=== PATIENT | male | born 1965 | race African-American/Black ===

== ENCOUNTER 2017-04-06 20:39 | Emergency (ER) | payer OTHER ==
[~2017-04-06 20:39] MED LIST: CYCL-36 PO; DICL50 PO; NORV5TAB PO
[2017-04-06 20:41] VITALS: BP 161/95; PULSE 76; RESP 18; TEMP 98.4; O2SAT 97
--- NOTE | 2017-04-06 21:13 | PD ---
Physical Exam Time Seen by Provider: 21:08 Narrative 51yo M requesting prescription refill on Flomax. Hasn't taken it for two years. Last night started having difficulty urinating with urinary hesitancy. Denies dysuria, penile discharge. Denies abd pain, fever. Patient seen in triage. VS reviewed. Awaiting bed placement. Data Data Last Documented VS Vital Signs Date Time Temp Pulse Resp B/P Pulse Ox O2 Delivery O2 Flow Rate FiO2 04/06/17 21:11 16 04/06/17 20:41 98.4 76 161/95 97 Room Air Orders Gc And Chlamydia Pcr (04/06/17 21:13) Urinalysis - C+S If Indicated (04/06/17 21:13) MDM Supervised Visit with YOMAIRA: No Scripts No Active Prescriptions or Reported Meds Michelle Dowell Apr 06, 2017 21:13
[2017-04-06 21:35] LABS: BLOOD, URINE NEG (NEG); COMMENT (UR) CULT NOT INDICATED; CULTURE IF INDICATED CULT NOT INDICATED; GLUCOSE,URINE NEG (NEG); KETONE, URINE NEG (NEG); MUCUS URINE FEW /lpf (OCC); NITRITE,URINE NEG (NEG); PH, URINE 6.5 (5.0-8.5); URINE COLOR YELLOW (YELLW/STRAW)
--- NOTE | 2017-04-06 22:56 | PD ---
HPI Chief Complaint: Medication Refill Request Time Seen by Provider: 22:43 Travel History International Travel<30 days: No Contact w/Intl Traveler<30days: No Traveled to known affect area: No History of Present Illness HPI 51yo M with no significant PMH presents to the ED requesting a prescription for flomax. States he has prostate problem and was given flomax in 2015 and it really helped. He is having intermittent difficulty starting urinating and feels that after he urinates, he wants to urinate again. Denies any fever, chest pain, sob, n/v, abdominal pain, testicular pain, penile discharge, penile rash, dysuria, or hematuria. PFSH Past Medical History Depression: Yes Diminished Hearing: No Endocrine: No Hypertension: Yes Tetanus Vaccination: > 5 Years Influenza Vaccination: No Past Surgical History Eye Surgery: Yes (LEFT EYE LAZY EYE SURGERY) Tonsillectomy: Yes Social History Alcohol Use: Yes (sometimes) Tobacco Use: Yes (cigar) Substance Use: Yes (MARIJUANA, cocaine. Patient states weaning himself off.) Allergies-Medications (Allergen,Severity, Reaction): Coded Allergies: *MDRO Multi-Drug Resistant Organism (Unverified Allergy, Unknown, 04/06/17) MRSA 2008 Morphine (Verified Adverse Reaction, Intermediate, Itching, 04/06/17) Itching noted when pt received morphine IV. Reported Meds & Prescriptions Reported Meds & Active Scripts Active Flomax (Tamsulosin HCl) 0.4 Mg Cap 0.4 Mg PO HS 10 Days Review of Systems Except as stated in HPI: all other systems reviewed are Neg Physical Exam Narrative GENERAL: 51yo M not in distress. SKIN: Focused skin assessment warm/dry. HEAD: Atraumatic. Normocephalic. EYES: Pupils equal and round. No scleral icterus. No injection or drainage. ENT: No nasal bleeding or discharge. Mucous membranes pink and moist. NECK: Trachea midline. No JVD. CARDIOVASCULAR: Regular rate and rhythm. No murmur appreciated. RESPIRATORY: No accessory muscle use. Clear to auscultation. Breath sounds equal bilaterally. GASTROINTESTINAL: Abdomen soft, non-tender, nondistended. No rebound tenderness or guarding. MUSCULOSKELETAL: No obvious deformities. No clubbing. No cyanosis. No edema. NEUROLOGICAL: Awake and alert. No obvious cranial nerve deficits. Motor grossly within normal limits. Normal speech. PSYCHIATRIC: Appropriate mood and affect; insight and judgment normal. Data Data Last Documented VS Vital Signs Date Time Temp Pulse Resp B/P Pulse Ox O2 Delivery O2 Flow Rate FiO2 04/06/17 21:11 16 04/06/17 20:41 98.4 76 161/95 97 Room Air Orders Gc And Chlamydia Pcr (04/06/17 21:13) Urinalysis - C+S If Indicated (04/06/17 21:13) Labs Laboratory Tests Test 04/06/17 21:15 Urine Color YELLOW Urine Turbidity CLEAR Urine pH 6.5 Urine Specific [place] 1.019 Urine Protein 30 mg/dL Urine Glucose (UA) NEG mg/dL Urine Ketones NEG mg/dL Urine Occult Blood NEG Urine Nitrite NEG Urine Bilirubin NEG Urine Urobilinogen LESS THAN 2.0 MG/DL Urine Leukocyte Esterase NEG Urine RBC 3 /hpf Urine WBC LESS THAN 1 /hpf Urine Mucus FEW /lpf Microscopic Urinalysis Comment CULT NOT INDICATED Chlamydia trachomatis DNA NOT DETECTED (PCR) Neisseria gonorrhoeae DNA NOT DETECTED (PCR) MDM Medical Decision Making Medical Screen Exam Complete: Yes Emergency Medical Condition: Yes Differential Diagnosis UTI vs. BPH Narrative Course 51yo M with c/o difficulty starting urinating intermittently here requesting prescription for flomax. States he has prostates problem. UA showed no leukocyte or nitrite. Pt is requesting food since he lives in his van. Denies any fever, vomiting or abdominal pain. VS stable. Will give food and have pt follow up with urology. Pt is able to urinate. Abdomen is soft, NT/ND. Return precautions given. Diagnosis Primary Impression: Urinary frequency Referrals: Edgardo Haynes MD call for appointment Patient Instructions: General Instructions Departure Forms: Tests/Procedures Additional Instructions: Please follow up with urology or primary care physician as an outpatient to check your prostate. Return to the ED if symptoms worsen. Med/Other Pt SpecificInfo: Prescription(s) given Scripts Tamsulosin (Flomax)0.4 Mg Cap0.4 Mg PO HS 10 Days Ref 0 Prov:Maria A Frey 04/06/17 Disposition: 01 DISCHARGE HOME Condition: Stable FreyMaria A DO Apr 06, 2017 22:56
[2017-04-06] MEDS ORDERED: TAMS5CAP PO (23:58)
[2017-04-07 00:08] LABS: CHLAMYDIA PCR NOT DETECTED (NOT DETECT); NEISSERIA PCR NOT DETECTED (NOT DETECT)
== END 2017-04-07 02:17 | disposition home or self-care (01) ==
LOC: NEPD 20:39
DX: R35.0 Frequency of micturition (principal); F32.9 Major depressive disorder, single episode, unspecified; I10 Essential (primary) hypertension; F17.290 Nicotine dependence, other tobacco product, uncomplicated; Z79.899 Other long term (current) drug therapy; Z88.5 Allergy status to narcotic agent
CPT/HCPCS: 81001; 87491; 87591; 99283

== ENCOUNTER 2017-05-13 21:25 | Emergency (ER) | payer SELFPAY ==
[~2017-05-13] VITALS: Ht 182.9 cm; Wt 80.0 kg
[~2017-05-13 21:25] MED LIST changes: -CYCL-36 PO; -DICL50 PO; -NORV5TAB PO; +TAMS5CAP PO
[2017-05-13 21:31] VITALS: BP 163/97; PULSE 86; RESP 16; TEMP 98.5; O2SAT 98
--- NOTE | 2017-05-13 21:44 | PD ---
HPI Chief Complaint: Fall Time Seen by Provider: 21:40 Travel History International Travel<30 days: No Contact w/Intl Traveler<30days: No Traveled to known affect area: No History of Present Illness HPI 51-year-old male presents to the emergency department via EMS for evaluation after a slip and fall. He states that he slipped and his work boots, wet surface causing him to fall. He has hematoma with a small lack to left forehead , small act to the right cheek, small lack to the left inner upper lip. He states his tetanus immunization was one to 2 years ago. Patient is unsure if he lost consciousness. He denies any neck pain or back pain. No chest pain or abdominal pain. No nausea or vomiting. Patient's main complaint is right inner hip/upper thigh pain. He reports history of hypertension and BPH. He states he is not taking his hypertension medications. His only medication is Flomax. He denies taking any anticoagulants or having any bleeding disorders. PFSH Past Medical History Depression: Yes Diminished Hearing: No Endocrine: No Hypertension: Yes Tetanus Vaccination: < 5 Years Influenza Vaccination: No Past Surgical History Eye Surgery: Yes (LEFT EYE LAZY EYE SURGERY) Tonsillectomy: Yes Social History Alcohol Use: Yes (sometimes) Tobacco Use: Yes (cigar) Substance Use: Yes (MARIJUANA) Allergies-Medications (Allergen,Severity, Reaction): Coded Allergies: *MDRO Multi-Drug Resistant Organism (Unverified Allergy, Unknown, 05/13/17) MRSA 2008 Morphine (Verified Adverse Reaction, Intermediate, Itching, 05/13/17) Itching noted when pt received morphine IV. Reported Meds & Prescriptions Reported Meds & Active Scripts Active Flomax (Tamsulosin HCl) 0.4 Mg Cap 0.4 Mg PO HS 10 Days Review of Systems Except as stated in HPI: all other systems reviewed are Neg Physical Exam Narrative GENERAL: Well-nourished, well-developed male patient, afebrile. SKIN: Focused skin assessment warm/dry. Patient has large hematoma to the left forehead with 0.5 cm superficial laceration. He also has a 1 similar superficial laceration to the right cheek. Patient also has a 1 cm laceration to the inner upper lip. HEAD: Normocephalic. EYES: No scleral icterus. No injection or drainage. NECK: Supple, trachea midline. No JVD or lymphadenopathy. CARDIOVASCULAR: Regular rate and rhythm without murmurs, gallops, or rubs. Bilateral radial and pedal pulses are 2+. RESPIRATORY: Breath sounds equal bilaterally. No accessory muscle use. Lungs sounds are clear to auscultation. GASTROINTESTINAL: Abdomen soft, non-tender, nondistended. MUSCULOSKELETAL: No cyanosis, or edema. Patient has tenderness over right medial upper thigh. BACK: Nontender without obvious deformity. No CVA tenderness. No midline spinal tenderness. He has full rotation cervical spine without pain or stiffness. Data Data Last Documented VS Vital Signs Date Time Temp Pulse Resp B/P Pulse Ox O2 Delivery O2 Flow Rate FiO2 05/13/17 22:58 16 05/13/17 21:35 97 Room Air 05/13/17 21:31 98.5 86 163/[address] Brain W/O Iv Contrast(Rout) (05/13/17 ) Hip, Uni(Ap&Lat) W Ap Pelvis (05/13/17 ) Femur (Ap & Lat/2vws) (05/13/17 ) Hydromorphone Pf Inj (Dilaudid Pf Inj) (05/13/17 21:45) Ondansetron Inj (Zofran Inj) (05/13/17 21:45) Ct Hip W/O Contrast (05/13/17 ) MDM Medical Decision Making Medical Screen Exam Complete: Yes Emergency Medical Condition: Yes Medical Record Reviewed: Yes Differential Diagnosis Fracture versus contusion versus sprain versus muscle spasm versus intracranial abnormality versus closed head injury laceration versus abrasion Narrative Course 51-year-old male presents to the emergency department via EMS for evaluation after a slip and fall. Patient's main complaint is right hip pain. He did hit his head has possible loss of consciousness. I expressed the patient that I would like to place a suture in his upper lip, but he declined stating he does not want any sutures done. CT of the brain is ordered and pending. X-ray of the right hip with pelvis and right femur are ordered and pending. Patient is given Dilaudid 1 mg IM for pain. CT of the brain shows no acute findings. X-ray of the right hip with pelvis shows equivocal findings suggesting a fracture through the junction of the femoral head and neck on the right side. X-ray of the right femur is pending. Ct of the right hip is ordered and pending. My attending physician, Dr. Rice, will resume care and disposition of patient. Denisse Combs May 13, 2017 21:44
[2017-05-13] MEDS ORDERED: ONDANSETRON HCL 4 MG/2 ML VIAL IM ONE (21:45)
[2017-05-13] MEDS ORDERED: HYDROmorphone HCL PF 1 MG/ML VIAL IM ONE (21:45)
--- NOTE | 2017-05-13 22:41 | RADRPT ---
EXAM DATE/TIME: 05/13/2017 21:57 [facility] COMPARISON: CT ABDOMEN & PELVIS W CONTRAST, February 11, 2014, 20:35. INDICATIONS : Right hip pain post fall today MEDICAL HISTORY : None. SURGICAL HISTORY : None. ENCOUNTER: Initial ACUITY: 1 day PAIN SCORE: 10/10 LOCATION: Right hip FINDINGS: Bony pelvic ring is grossly intact. The patient is rotated towards the right on the pelvic film. Th ere is an asymmetric appearance to the hips. There is a buckling of the junction of the femoral head and neck on the right side seen in both the frontal and oblique view. No definite fracture lucency is seen. There is, however questionable disruption of the secondary trabecula in the femoral neck. The bony acetabulum is intact. No radiopaque foreign bodies. CONCLUSION: Equivocal findings suggesting a fracture through the junction of the femoral head and neck on the rig ht side. Graham Pérez MD on May 13, 2017 at 22:37 Board Certified Radiologist. This report was verified electronically.
--- NOTE | 2017-05-13 22:50 | RADRPT ---
EXAM DATE/TIME: 05/13/2017 22:18 [facility] COMPARISON: CT BRAIN W/O CONTRAST, February 11, 2014, 9:42. INDICATIONS : Trauma; fall RADIATION DOSE: 56.35 CTDIvol (mGy) MEDICAL HISTORY : Hypertension. SURGICAL HISTORY : None. ENCOUNTER: Initial ACUITY: 1 day PAIN SCALE: 3/10 LOCATION: cranial TECHNIQUE: Multiple contiguous axial images were obtained of the head. Using automated exposure control and adj ustment of the mA and/or kV according to patient size, radiation dose was kept as low as reasonably a chievable to obtain optimal diagnostic quality images. DICOM format image data is available electro nically for review and comparison. FINDINGS: CEREBRUM: The ventricles are normal for age. No evidence of midline shift, mass lesion, hemorrhage or acute in farction. No extra-axial fluid collections are seen. POSTERIOR FOSSA: The cerebellum and brainstem are intact. The 4th ventricle is midline. The cerebellopontine angle i s unremarkable. EXTRACRANIAL: The visualized portion of the orbits is intact. SKULL: There is mild induration and thickening of the scalp in the highest convexity left occipital region w ithout radiopaque foreign body. There is asymmetric thickening of the temporalis muscle on the left side, measuring up to 1.8 cm in thickness; this asymmetry is similar in appearance to a prior CT in 2 014. The calvaria is intact. No evidence of skull fracture. CONCLUSION: 1. No acute findings in the brain. 2. Mild induration of the left highest convexity occipital scalp without evidence of skull fracture. 3. Asymmetric enlargement of the left temporalis muscle without evidence of skull fracture. Please n ote that the left temporalis is also thickened and enlarged on the prior CT in 2013. Graham Pérez MD on May 13, 2017 at 22:44 Board Certified Radiologist. This report was verified electronically.
[2017-05-13 22:58] VITALS: RESP 16
--- NOTE | 2017-05-13 23:40 | RADRPT ---
EXAM DATE/TIME: 05/13/2017 21:55 [facility] COMPARISON: No previous studies available for comparison. INDICATIONS : Right proximal femur pain post fall today MEDICAL HISTORY : None. SURGICAL HISTORY : None. ENCOUNTER: Initial ACUITY: 1 day PAIN SCORE: 10/10 LOCATION: Right proximal femur FINDINGS: Two view examination of the right femur demonstrates no evidence of fracture or dislocation. Bony mi neralization is normal. The soft tissue structures are intact. CONCLUSION: Negative exam. Gadiel Oliveira MD on May 13, 2017 at 23:38 Board Certified Radiologist. This report was verified electronically.
--- NOTE | 2017-05-14 00:49 | RADRPT ---
EXAM DATE/TIME: 05/14/2017 00:19 [facility] COMPARISON: HIP RIGHT (AP&LAT 2/3VWS) W AP PELVIS, May 13, 2017, 21:57. INDICATIONS : Right hip pain after trauma. Equivocal findings on x-ray.. RADIATION DOSE: 9.97 CTDIvol (mGy) MEDICAL HISTORY : None SURGICAL HISTORY : None. ENCOUNTER: Initial ACUITY: 1 day PAIN SCALE: 10/10 LOCATION: Right hip. TECHNIQUE: Volumetric scanning of the hip was performed. Using automated exposure control and adjustment of the mA and/or kV according to patient size, radiation dose was kept as low as reasonably achievable to o btain optimal diagnostic quality images. DICOM format image data is available electronically for rev iew and comparison. FINDINGS: BONES: No evidence of fracture. Alignment is within normal limits. JOINTS: Mild degenerative changes noted in the right hip with superior joint space loss, sclerosis and slight spurring along the femoral head. SOFT TISSUES: Muscles, tendons and neurovascular structures are grossly unremarkable. No evidence of mass, organize d fluid collection, or foreign body. CONCLUSION: Mild degenerative change in the right hip with no acute fracture or malalignment. Gadiel Oliveira MD on May 14, 2017 at 0:43 Board Certified Radiologist. This report was verified electronically.
[2017-05-14] MEDS ORDERED: TRAM-388 PO (01:22)
--- NOTE | 2017-05-14 01:22 | PD ---
Physical Exam Date Seen by Provider: May 13, 2017 Time Seen by Provider: 23:00 Narrative I, Dr. Rice, have reviewed the advance practice practitioner's documentation and am in agreement, met with the patient face to face, made the diagnosis, and the medical decision making was done by me. *My assessment and Findings: Patient seen and evaluated with nurse practitioner , please see nurse practitioner note for further details. Last 24 hours Impressions Lower Extremity CT 05/13/17 0000 Signed Impressions: Service Date/Time: May 00:19 - CONCLUSION: Mild degenerative change in the right hip with no acute fracture or malalignment. Gadiel Oliveira MD Hip and Pelvis X-Ray 05/13/17 0000 Signed Impressions: Service Date/Time: Saturday, May 13, 2017 21:57 - CONCLUSION: Equivocal findings suggesting a fracture through the junction of the femoral head and neck on the right side. Graham Pérez MD Head CT 05/13/17 0000 Signed Impressions: Service Date/Time: Saturday, May 13, 2017 22:18 - CONCLUSION: 1. No acute findings in the brain. 2. Mild induration of the left highest convexity occipital scalp without evidence of skull fracture. 3. Asymmetric enlargement of the left temporalis muscle without evidence of skull fracture. Please note that the left temporalis is also thickened and enlarged on the prior CT in 2013. Graham Pérez MD Femur X-Ray 05/13/17 0000 Signed Impressions: Service Date/Time: Saturday, May 13, 2017 21:55 - CONCLUSION: Negative exam. Gadiel Oliveira MD Initial x-rays show questionable deformity in the right hip and a CAT scan was done to evaluate further, did not show any signs of acute fractures. At this point, it appears that the patient may have had a hip injury, strain and contusion but no fractures. Plan would be to release the patient with crutches and symptomatic relief or pain. Follow-up with primary care physician. Return for any worsening in pain or new symptoms as needed. The plan has been discussed with him and he states understanding. Data Data Last Documented VS Vital Signs Date Time Temp Pulse Resp B/P Pulse Ox O2 Delivery O2 Flow Rate FiO2 05/13/17 22:58 16 05/13/17 21:35 97 Room Air 05/13/17 21:31 98.5 86 163/[address] Brain W/O Iv Contrast(Rout) (05/13/17 ) Hip, Uni(Ap&Lat) W Ap Pelvis (05/13/17 ) Femur (Ap & Lat/2vws) (05/13/17 ) Hydromorphone Pf Inj (Dilaudid Pf Inj) (05/13/17 21:45) Ondansetron Inj (Zofran Inj) (05/13/17 21:45) Ct Hip W/O Contrast (05/13/17 ) Tramadol-Acetamin 37.5-325 Mg (Ultracet (05/14/17 01:30) Crutches (05/14/17 01:18) MDM Medical Record Reviewed: Yes Supervised Visit with YOMAIRA: Yes Diagnosis Primary Impression: Contusion of hip, right Patient Instructions: Narcotic given in the ED Additional Instruction: Decreased weightbearing on the right leg, use crutches as needed. Return for any worsening in pain or new symptoms as needed. Follow-up with your primary care physician. Med/Other Pt SpecificInfo: Prescription(s) given Scripts Tramadol-Acetaminophen 37.5-325 mg Tab1 Tab PO Q6H PRN (PAIN) #15 TAB Ref 0 Prov:Talat Rice MD 05/14/17 Disposition: 01 DISCHARGE HOME Condition: Stable Talat Rice MD May 14, 2017 01:22
[2017-05-14 01:28] VITALS: BP 162/77; TEMP 98.3
[2017-05-14] MEDS ORDERED: traMADol/ACETAMINOPHEN 37.5/325 1 TAB PO ONE (01:30)
== END 2017-05-14 01:41 | disposition home or self-care (01) ==
LOC: NEPC 21:25
DX: S70.01XA Contusion of right hip, initial encounter (principal); W19.XXXA Unspecified fall, initial encounter; I10 Essential (primary) hypertension
CPT/HCPCS: 70450; 73502; 73552; 73700; 96372; 99285; E0113; J1170; J2405

== ENCOUNTER 2017-06-01 07:39 | Emergency (ER) | payer SELFPAY ==
[~2017-06-01] VITALS: Ht 182.9 cm; Wt 82.0 kg
[~2017-06-01 07:39] MED LIST changes: +TRAM-388 PO
[2017-06-01 07:42] VITALS: BP 164/98; PULSE 77; RESP 20; TEMP 98; O2SAT 100
[2017-06-01] MEDS ORDERED: TAMS5CAP PO (08:31)
[2017-06-01] MEDS ORDERED: ROBA500T PO (08:31)
--- NOTE | 2017-06-01 08:32 | PD ---
HPI Chief Complaint: Pain: Acute or Chronic Time Seen by Provider: 08:24 Travel History International Travel<30 days: No Contact w/Intl Traveler<30days: No Traveled to known affect area: No History of Present Illness HPI 51-year-old male presents emergency department requesting medication refill on Flomax and complaining of continued right groin pain after a fall proximally 3 weeks ago. He was evaluated here at [facility] after the fall. He says his been seen for urinary hesitancy and was given the Flomax which helps his symptoms. He has not followed up with his primary care provider in regards to either of these complaints. Denies fever, vomiting, abdominal pain, hematuria, dysuria. Denies penile discharge or risk of STD. Says he is urinating, but with difficulty. Denies paresthesias, loss of sensation, decreased range of motion, decreased strength to his right lower extremity. Has been using a cane for support with ambulation. Has no other medical complaints. Symptoms are mild in severity. No other modifying factors or associated signs and symptoms. PFSH Past Medical History Depression: Yes Diminished Hearing: No Endocrine: No Hypertension: Yes ?: Not Past Surgical History Eye Surgery: Yes (LEFT EYE LAZY EYE SURGERY) Tonsillectomy: Yes Social History Alcohol Use: Yes (sometimes) Tobacco Use: Yes (cigar) Substance Use: Yes (MARIJUANA) Allergies-Medications (Allergen,Severity, Reaction): Coded Allergies: *MDRO Multi-Drug Resistant Organism (Unverified Allergy, Unknown, 05/13/17) MRSA 2008 morphine (Unverified Adverse Reaction, Intermediate, Itching, 05/26/17) Itching noted when pt received morphine IV. Reported Meds & Prescriptions Reported Meds & Active Scripts Active Robaxin (Methocarbamol) 500 Mg Tab 500 Mg PO QID PRN 30 Days Flomax (Tamsulosin HCl) 0.4 Mg Cap 0.4 Mg PO HS 3 Days Tramadol-Acetaminophen 37.5-325 mg Tab 1 Tab PO Q6H PRN Flomax (Tamsulosin HCl) 0.4 Mg Cap 0.4 Mg PO HS 10 Days Review of Systems Except as stated in HPI: all other systems reviewed are Neg Physical Exam Narrative GENERAL: Well-nourished, well-developed male patient, in no acute distress SKIN: Warm and dry. HEAD: Atraumatic. Normocephalic. EYES: Pupils equal and round. No scleral icterus. No injection or drainage. ENT: Mucosa pink and moist. Airway patent. NECK: Trachea midline. CARDIOVASCULAR: Regular rate. RESPIRATORY: No accessory muscle use. GASTROINTESTINAL: Abdomen soft, non-tender, nondistended. Bowel sounds active 4 quadrants. Bladder nondistended and nontender. MUSCULOSKELETAL: Right lower extremity supple and non-tense with 2+ pedal pulses and sensory intact without erythema or edema; with full range of motion at the hip and knee joint; knee joint is stable with negative drawer test; no tenderness on abduction; patient ambulatory with assistance of cane. No obvious deformities. No clubbing. No cyanosis. No edema. NEUROLOGICAL: Awake and alert. Oriented 3. No obvious cranial nerve deficits. Motor grossly within normal limits. Normal speech. PSYCHIATRIC: Appropriate mood and affect; insight and judgment normal. Data Data Last Documented VS Vital Signs Date Time Temp Pulse Resp B/P (MAP) Pulse Ox O2 Delivery O2 Flow Rate FiO2 06/01/17 07:42 98.0 77 20 164/98 (120) 100 Room Air MDM Medical Decision Making Medical Screen Exam Complete: Yes Emergency Medical Condition: Yes Medical Record Reviewed: Yes Differential Diagnosis Groin strain, medication refill, urinary hesitancy Narrative Course 51-year-old male with continued right groin pain after a fall that he was evaluated here for on May 13, 2017. He has CT of his lower extremity which was negative for acute fractures. Also requesting a medication refill on Flomax. He was seen twice in March for urinary hesitancy and frequency and was given Flomax, which the patient states helps his symptoms. The patient was referred to Dr. Edgardo Haynes for follow-up and the patient has not followed up. The patient was provided a information sheet for [facility]. Robaxin and Flomax prescribed for home. Instructed patient to follow up with urology and primary care provider for continued treatment and evaluation. Instructed patient to follow up with primary care provider. Patient verbalizes understanding and agreement with treatment plan. Patient is medically cleared and stable for discharge. Discussed reasons to return to the emergency department. Patient agrees with treatment plan. The patients vital signs are stable and the patient is stable for outpatient follow-up and treatment. Patient discharged home, stable and in no acute distress. Diagnosis Primary Impression: Contusion of hip, right Qualified Codes: S70.01XD - Contusion of right hip, subsequent encounter Additional Impressions: Medication refill Urinary hesitancy Referrals: [facility] Primary Care Physician Urologist Patient Instructions: General Instructions Additional Instructions: Ibuprofen or Tylenol as directed and as needed for pain Robaxin as directed and as needed for muscle spasms Heat to affected muscle area for symptom management Follow-up with urology Follow-up with primary care provider Return to the emergency department immediately with worsening of symptoms Med/Other Pt SpecificInfo: Prescription(s) given Scripts Methocarbamol (Robaxin) 500 Mg Tab 500 MG PO QID Y for MUSCLE SPASM for 30 Days, TAB 0 Refills Prov: Michelle Dowell 06/01/17 Tamsulosin (Flomax) 0.4 Mg Cap 0.4 MG PO HS for Manage Prostate Problems for 3 Days, #30 CAP 0 Refills Prov: Michelle Dowell 06/01/17 Disposition: 01 DISCHARGE HOME Condition: Stable Michelle Dowell Jun 01, 2017 08:32
== END 2017-06-01 09:42 | disposition home or self-care (01) ==
LOC: NEPK 07:39
DX: S70.01XA Contusion of right hip, initial encounter (principal); W19.XXXA Unspecified fall, initial encounter; R39.11 Hesitancy of micturition; I10 Essential (primary) hypertension; F17.200 Nicotine dependence, unspecified, uncomplicated
CPT/HCPCS: 99283

== ENCOUNTER 2017-12-23 17:41 | Emergency (ER) | payer SELFPAY ==
[~2017-12-23] VITALS: Ht 182.9 cm; Wt 78.0 kg
[~2017-12-23 17:41] MED LIST changes: +ROBA500T PO
[2017-12-23 18:15] VITALS: BP 136/75; PULSE 66; RESP 16; TEMP 97.8; O2SAT 100
--- NOTE | 2017-12-23 19:39 | PD ---
HPI Chief Complaint: Edema Time Seen by Provider: 19:31 Travel History International Travel<30 days: No Contact w/Intl Traveler<30days: No Traveled to known affect area: No History of Present Illness HPI 52-year-old male here for evaluation of bilateral lower extremity edema. Patient reports having edema for the last 3 days. He feels as though his legs are extremely tight. 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 He denies chest pain or dyspnea. He has history of hypertension and is supposed to be on medication, however he is not taking it. He has also been out of his Flomax for the last 2 weeks. He is not on any other meds. No known history of kidney disease. No history of DVT or PE. PFSH Past Medical History Depression: Yes Diminished Hearing: No Endocrine: No Hypertension: Yes Past Surgical History Eye Surgery: Yes (LEFT EYE LAZY EYE SURGERY) Tonsillectomy: Yes Social History Alcohol Use: Yes (sometimes) Tobacco Use: Yes (cigar) Substance Use: Yes (MARIJUANA) Allergies-Medications (Allergen,Severity, Reaction): Coded Allergies: *MDRO Multi-Drug Resistant Organism (Unverified Allergy, Unknown, 12/23/17) MRSA 2008 morphine (Unverified Adverse Reaction, Intermediate, Itching, 12/23/17) Itching noted when pt received morphine IV. Reported Meds & Prescriptions Reported Meds & Active Scripts Active Robaxin (Methocarbamol) 500 Mg Tab 500 Mg PO QID PRN 30 Days Flomax (Tamsulosin HCl) 0.4 Mg Cap 0.4 Mg PO HS 3 Days Tramadol-Acetaminophen 37.5-325 mg Tab 1 Tab PO Q6H PRN Flomax (Tamsulosin HCl) 0.4 Mg Cap 0.4 Mg PO HS 10 Days Review of Systems Except as stated in HPI: all other systems reviewed are Neg Physical Exam Narrative GENERAL: Well-developed, well-nourished, comfortable, no apparent distress. SKIN: Focused skin assessment warm/dry. HEAD: Atraumatic. Normocephalic. EYES: Pupils equal and round. No scleral icterus. No injection or drainage. ENT: Mucous membranes pink and moist. NECK: Trachea midline. No JVD. CARDIOVASCULAR: Regular rate and rhythm. No murmur appreciated. RESPIRATORY: No accessory muscle use. Clear to auscultation. Breath sounds equal bilaterally. GASTROINTESTINAL: Abdomen soft, non-tender, nondistended. Hepatic and splenic margins not palpable. MUSCULOSKELETAL: No obvious deformities. No clubbing. No cyanosis. Moderate bilateral lower extremity edema from foot to knee. All compartments and bilateral lower extremities are supple. NEUROLOGICAL: Awake and alert. No obvious cranial nerve deficits. Motor grossly within normal limits. Normal speech. PSYCHIATRIC: Appropriate mood and affect; insight and judgment normal. Data Data Last Documented VS Vital Signs Date Time Temp Pulse Resp B/P (MAP) Pulse Ox O2 Delivery O2 Flow Rate FiO2 12/23/17 20:23 18 12/23/17 18:15 97.8 66 136/75 (95) 100 Orders Orders Complete Blood Count With Diff (12/23/17 19:35) Comprehensive Metabolic Panel (12/23/17 19:35) B-Type Natriuretic Peptide (12/23/17 19:35) Iv Access Insert/Monitor (12/23/17 19:35) Ecg Monitoring (12/23/17 19:35) Oximetry (12/23/17 19:35) Chest, Single Ap (12/23/17 19:35) Sodium Chloride 0.9% Flush (Ns Flush) (12/23/17 19:45) Us Leg Venous Doppler Bilat (12/23/17 ) Labs Laboratory Tests Test 12/23/17 19:40 White Blood Count 6.7 TH/MM3 Red Blood Count 4.12 MIL/MM3 Hemoglobin 12.5 GM/DL Hematocrit 36.9 % Mean Corpuscular Volume 89.6 FL Mean Corpuscular Hemoglobin 30.4 PG Mean Corpuscular Hemoglobin Concent 34.0 % Red Cell Distribution Width 14.9 % Platelet Count 280 TH/MM3 Mean Platelet Volume 6.9 FL Neutrophils (%) (Auto) 58.2 % Lymphocytes (%) (Auto) 28.1 % Monocytes (%) (Auto) 9.6 % Eosinophils (%) (Auto) 2.9 % Basophils (%) (Auto) 1.2 % Neutrophils # (Auto) 3.9 TH/MM3 Lymphocytes # (Auto) 1.9 TH/MM3 Monocytes # (Auto) 0.6 TH/MM3 Eosinophils # (Auto) 0.2 TH/MM3 Basophils # (Auto) 0.1 TH/MM3 CBC Comment DIFF FINAL Differential Comment Blood Urea Nitrogen 21 MG/DL Creatinine 1.15 MG/DL Random Glucose 81 MG/DL Total Protein 7.5 GM/DL Albumin 4.2 GM/DL Calcium Level 8.9 MG/DL Alkaline Phosphatase 71 U/L Aspartate Amino Transf (AST/SGOT) 33 U/L Alanine Aminotransferase (ALT/SGPT) 37 U/L Total Bilirubin 0.5 MG/DL Sodium Level 139 MEQ/L Potassium Level 4.1 MEQ/L Chloride Level 104 MEQ/L Carbon Dioxide Level 29.2 MEQ/L Anion Gap 6 MEQ/L Estimat Glomerular Filtration Rate 81 ML/MIN MDM Medical Decision Making Medical Screen Exam Complete: Yes Emergency Medical Condition: Yes Differential Diagnosis Venous insufficiency, fluid overload, renal insufficiency, DVT Narrative Course Vital signs show heart rate 66, blood pressure 136/75, pulse ox 100% on room air , oral temperature 97.8F. CBC: WBC 6.7, hemoglobin 12.5, hematocrit 36.9, platelets 280. CMP is remarkable for BUN 21, creatinine 1.15, GFR 81, otherwise unremarkable. Chest x-ray shows no evidence of acute cardiopulmonary disease. Bilateral lower extremity venous duplex: No venous thrombus of either lower extremity, upper limits of normal bilateral inguinal lymph nodes. The patient was made aware of all findings. He is resting comfortably. He is in no acute distress. There are no signs of cellulitis in his lower extremities. This is likely venous insufficiency. The patient was advised to purchase compression stockings and to elevate his legs as much as possible. PMD follow-up this week. He was advised on when to return to the emergency department. He verbalizes understanding and agreement with plan. Diagnosis Primary Impression: Bilateral lower extremity edema Referrals: [facility] 3 days Additional Instructions: Follow-up with a primary care physician this week. Keep legs elevated. Purchase compression stockings and wear them. Return to the emergency department for worsening symptoms or any other concerns. Disposition: 01 DISCHARGE HOME Condition: Stable Ray Bryant MD Dec 23, 2017 19:39
[2017-12-23] MEDS ORDERED: SODIUM CHLORIDE 0.9% FLUSH 10 ML FLUSH IVF PRN (19:45)
[2017-12-23 19:54] LABS: AUTOMATED NEUTROPHIL # 3.9 TH/MM3 (1.8-7.7); BASOPHIL # 0.1 TH/MM3 (0-0.2); BASOPHIL % 1.2 % (0.0-2.0); EOSINOPHIL # 0.2 TH/MM3 (0-0.4); EOSINOPHIL % 2.9 % (0.0-4.0); HEMATOCRIT 36.9 % (39.0-51.0); HEMOGLOBIN 12.5 GM/DL (13.0-17.0); LYMPH % 28.1 % (9.0-44.0); LYMPHOCYTE # 1.9 TH/MM3 (1.0-4.8); MEAN CELL VOLUME 89.6 FL (80.0-100.0); MEAN CORPUSCULAR HEMOGLOBIN 30.4 PG (27.0-34.0); MEAN PLATELET VOLUME 6.9 FL (7.0-11.0); MONO % 9.6 % (0.0-8.0); MONOCYTE # 0.6 TH/MM3 (0-0.9); NEUT % 58.2 % (16.0-70.0); PLATELET COUNT 280 TH/MM3 (150-450); RED BLOOD COUNT 4.12 MIL/MM3 (4.50-5.90); RED CELL DISTRIBUTION WIDTH 14.9 % (11.6-17.2); WHITE BLOOD COUNT 6.7 TH/MM3 (4.0-11.0)
[2017-12-23 20:17] LABS: ALBUMIN 4.2 GM/DL (3.4-5.0); AST (GOT) 33 U/L (15-37); BICARBONATE 29.2 MEQ/L (21.0-32.0); BLOOD UREA NITROGEN 21 MG/DL (7-18); CALCIUM 8.9 MG/DL (8.5-10.1); CHLORIDE 104 MEQ/L (98-107); CREATININE 1.15 MG/DL (0.60-1.30); GLOMERULAR FILTRATION RATE 81 ML/MIN (>89); GLUCOSE,RANDOM 81 MG/DL (74-106); SODIUM (NA) 139 MEQ/L (136-145)
[2017-12-23 20:18] LABS: ALT (GPT) 37 U/L (12-78)
[2017-12-23 20:20] LABS: ALKALINE PHOSPHATASE 71 U/L (45-117); TOTAL BILIRUBIN ADULT 0.5 MG/DL (0.2-1.0); TOTAL PROTEIN 7.5 GM/DL (6.4-8.2)
--- NOTE | 2017-12-23 20:20 | RADRPT ---
EXAM DATE/TIME: 12/23/2017 19:53 [facility] COMPARISON: CHEST SINGLE AP, April 27, 2015, 12:52. INDICATIONS : Short of breath. MEDICAL HISTORY : Hypertension. SURGICAL HISTORY : None. ENCOUNTER: Initial ACUITY: 1 day PAIN SCORE: 0/10 LOCATION: Bilateral chest FINDINGS: A single view of the chest demonstrates the lungs to be symmetrically aerated without evidence of mas s, infiltrate or effusion. The cardiomediastinal contours are unremarkable. Osseous structures are intact. CONCLUSION: No evidence of acute cardiopulmonary disease. Joshua Linda MD on December 23, 2017 at 20:18 Board Certified Radiologist. This report was verified electronically.
[2017-12-23 20:23] VITALS: RESP 18
--- NOTE | 2017-12-23 21:37 | RADRPT ---
EXAM DATE/TIME: 12/23/2017 21:06 [facility] COMPARISON: No previous studies available for comparison. INDICATIONS : Bilateral leg swelling and pain. MEDICAL HISTORY : Hypertension. Head trauma. Depression. MRSA. SURGICAL HISTORY : Tonsillectomy. Left eye surgery. ENCOUNTER: Initial ACUITY: 4 - 6 months PAIN SCORE: 3/10 LOCATION: Bilateral legs. TECHNIQUE: Venous ultrasound of the left and right leg was performed from the inguinal ligament to the proximal calf. Real-time, color Doppler and spectral tracing, compression and augmentation techniques were us ed. FINDINGS: RIGHT LEG: There is normal compressibility of the deep venous system from the inguinal region to the proximal ca lf. No echogenic clot is seen in the lumen of the common femoral, femoral, popliteal, and posterior tibial veins. There is a normal response of the venous system to proximal and distal augmentation an d respiration. LEFT LEG: There is normal compressibility of the deep venous system from the inguinal region to the proximal ca lf. No echogenic clot is seen in the lumen of the common femoral, femoral, popliteal, and posterior tibial veins. There is a normal response of the venous system to proximal and distal augmentation an d respiration. Bilateral inguinal lymph nodes measuring up to 1 cm in greatest short axis dimension. CONCLUSION: No venous thrombosis of either lower extremity. Upper limits of normal bilateral inguinal lymph nodes . Joshua Linda MD on December 23, 2017 at 21:34 Board Certified Radiologist. This report was verified electronically.
== END 2017-12-23 22:14 | disposition home or self-care (01) ==
LOC: NEPD 17:41
DX: R60.0 Localized edema (principal); I10 Essential (primary) hypertension; Z72.0 Tobacco use; Z86.59 Personal history of other mental and behavioral disorders
CPT/HCPCS: 71045; 80053; 83880; 85025; 93970; 99285

== ENCOUNTER 2017-12-28 16:54 | Emergency (ER) | payer SELFPAY ==
[2017-12-28 16:57] VITALS: BP 141/88; PULSE 81; RESP 20; TEMP 97.5; O2SAT 99
--- NOTE | 2017-12-28 19:36 | PD ---
HPI Chief Complaint: Edema Time Seen by Provider: 19:24 Travel History International Travel<30 days: No Contact w/Intl Traveler<30days: No Traveled to known affect area: No History of Present Illness HPI This is a 52-year-old male who presents for evaluation of bilateral lower extremity edema. Symptoms started last week after he was released from [facility] and started working at [employer].. He reports that he has to stand for long period of time at work. He was seen for evaluation of this bilateral lower extremity edema on December 23. At that time he had bilateral Doppler ultrasound of the lower extremities which revealed no acute normalities. CBC, CMP were performed revealing no significant abnormalities. BNP was normal. The patient returns today because his swelling persists. He has tried using compression stockings as previously recommended. In addition the patient is requesting a refill of Flomax. Reports that he has been on Flomax since 2014. He was released from [facility] last week and since then he has been out of his Flomax. He reports urinary hesitancy. Looking through his chart it appears that he has been here a few times in the past 3 years for evaluation of the same. No other complaints at this time. PFSH Past Medical History Depression: Yes Diminished Hearing: No Endocrine: No Genitourinary: Yes (ENLARGED PROSTATE) Hypertension: Yes Immunizations Current: Yes Tetanus Vaccination: > 5 Years Influenza Vaccination: No Past Surgical History Eye Surgery: Yes (LEFT EYE LAZY EYE SURGERY) Tonsillectomy: Yes Social History Alcohol Use: Yes (sometimes) Tobacco Use: No (cigar) Substance Use: No Allergies-Medications (Allergen,Severity, Reaction): Coded Allergies: *MDRO Multi-Drug Resistant Organism (Unverified Allergy, Unknown, 12/23/17) MRSA 2008 morphine (Unverified Adverse Reaction, Intermediate, Itching, 12/23/17) Itching noted when pt received morphine IV. Reported Meds & Prescriptions Reported Meds & Active Scripts Active Flomax (Tamsulosin HCl) 0.4 Mg Cap 0.4 Mg PO HS Hydrochlorothiazide 12.5 Mg Cap 12.5 Mg PO BID Flomax (Tamsulosin HCl) 0.4 Mg Cap 0.4 Mg PO HS 10 Days Review of Systems Except as stated in HPI: all other systems reviewed are Neg Physical Exam Narrative GENERAL: Well-developed well-nourished male in no acute distress SKIN: Warm and dry. HEAD: Atraumatic. Normocephalic. EYES: Pupils equal and round. No scleral icterus. No injection or drainage. ENT: No nasal bleeding or discharge. Mucous membranes pink and moist. NECK: Trachea midline. No JVD. CARDIOVASCULAR: Regular rate and rhythm. No murmur appreciated. RESPIRATORY: No accessory muscle use. Clear to auscultation. Breath sounds equal bilaterally. GASTROINTESTINAL: Abdomen soft, non-tender, nondistended. Hepatic and splenic margins not palpable. Rectal examination reveals a smooth nontender prostate with no palpable masses or obvious enlargement. MUSCULOSKELETAL: Bilateral 1-2+ tibial/pedal edema. There is no erythema. Distal pulses are intact. NEUROLOGICAL: Awake and alert. No obvious cranial nerve deficits. Motor grossly within normal limits. Normal speech. PSYCHIATRIC: Appropriate mood and affect; insight and judgment normal. Data Data Last Documented VS Vital Signs Date Time Temp Pulse Resp B/P (MAP) Pulse Ox O2 Delivery O2 Flow Rate FiO2 12/28/17 16:57 97.5 81 20 141/88 (105) 99 Orders Orders Basic Metabolic Panel (Bmp) (12/28/17 16:59) Urinalysis - C+S If Indicated (12/28/17 19:32) Labs Laboratory Tests Test 12/28/17 18:45 12/28/17 20:15 Urine Color YELLOW Urine Turbidity CLEAR Urine pH 6.5 Urine Specific [place] 1.018 Urine Protein NEG mg/dL Urine Glucose (UA) NEG mg/dL Urine Ketones NEG mg/dL Urine Occult Blood NEG Urine Nitrite NEG Urine Bilirubin NEG Urine Urobilinogen LESS THAN 2.0 MG/DL Urine Leukocyte Esterase NEG Urine RBC LESS THAN 1 /hpf Urine WBC LESS THAN 1 /hpf Microscopic Urinalysis Comment CULT NOT INDICATED Blood Urea Nitrogen 25 MG/DL Creatinine 1.12 MG/DL Random Glucose 93 MG/DL Calcium Level 9.0 MG/DL Sodium Level 140 MEQ/L Potassium Level 3.7 MEQ/L Chloride Level 105 MEQ/L Carbon Dioxide Level 25.9 MEQ/L Anion Gap 9 MEQ/L Estimat Glomerular Filtration Rate 84 ML/MIN [facility] Medical Decision Making Medical Screen Exam Complete: Yes Emergency Medical Condition: Yes Medical Record Reviewed: Yes Differential Diagnosis BPH, prostatic malignancy, dependent edema, renal failure Narrative Course I have reviewed his lab work from his recent visit which was reassuring. He did have a mildly elevated BUN of 20. Repeat BMP today reveals a BUN of 25, otherwise unremarkable. A urinalysis reveals no evidence of infectious process. At this point in time the plan is to give him a short refill of his Flomax as well as a prescription for low-dose hydrochlorothiazide. Discussed the importance of limiting his salt intake, elevation of legs and compression stockings as well as follow-up with primary care physician. He is stable for discharge. Diagnosis Primary Impression: Medication refill Additional Impression: Dependent edema Additional Instructions: Medication as prescribed. Decrease salt intake. Elevate the legs. Compression stockings. Follow-up closely with primary care physician. Return for any emergent medical conditions. Med/Other Pt SpecificInfo: Prescription(s) given Scripts Tamsulosin (Flomax) 0.4 Mg Cap 0.4 MG PO HS for Manage Prostate Problems, #30 CAP 0 Refills Prov: Rex Haq MD 12/28/17 Hydrochlorothiazide (Hydrochlorothiazide) 12.5 Mg Cap 12.5 MG PO BID, #60 CAP 0 Refills Prov: Rex Haq MD 12/28/17 Disposition: 01 DISCHARGE HOME Condition: Stable Vladimir Wooten Dec 28, 2017 19:36
[2017-12-28 20:10] LABS: BILIRUBIN, URINE NEG (NEG); BLOOD, URINE NEG (NEG); GLUCOSE,URINE NEG (NEG); KETONE, URINE NEG (NEG); NITRITE,URINE NEG (NEG); PH, URINE 6.5 (5.0-8.5); URINE COLOR YELLOW (YELLW/STRAW); URINE LEUKOCYTE ESTERASE NEG (NEG)
[2017-12-28 20:57] LABS: BICARBONATE 25.9 MEQ/L (21.0-32.0); CREATININE 1.12 MG/DL (0.60-1.30)
[2017-12-28] MEDS ORDERED: HYDR12.57 PO (21:01)
[2017-12-28] MEDS ORDERED: TAMS5CAP PO (21:01)
[2017-12-28 21:12] VITALS: BP 145/75
[2017-12-28] MEDS ORDERED: TAMSULOSIN HCL 0.4 MG CAP PO ONE ×2 (21:30→21:45)
== END 2017-12-28 21:36 | disposition home or self-care (01) ==
LOC: NED 16:54 → NEPD 21:36
DX: R60.0 Localized edema (principal); F32.9 Major depressive disorder, single episode, unspecified; I10 Essential (primary) hypertension; Z79.899 Other long term (current) drug therapy; Z88.5 Allergy status to narcotic agent
CPT/HCPCS: 80048; 81001; 99283